=== PATIENT | female | born 1955 | race Asian ===

== ENCOUNTER 2019-07-11 14:00 | Inpatient (IN) | payer MEDICARE, OTHER ==
[~2019-07-11] VITALS: Ht 157.5 cm; Wt 83.6 kg
[2019-07-11 15:59] VITALS: BP 141/66
[2019-07-11] MEDS ORDERED: ACETAMINOPHEN 325 MG TABLET PO PRN ×2 (16:00)
[2019-07-11] MEDS ORDERED: ALBUTEROL SULFATE HFA 90 MCG/PUFF 8 GM INHALER IH PRN (16:15)
[2019-07-11] MEDS ORDERED: FAMOTIDINE 20 MG TABLET PO SCH (16:30)
[2019-07-11] MEDS ORDERED: LEVE500T53 PO (19:47)
[2019-07-11] MEDS ORDERED: AMLO10TA7 PO (19:47)
[2019-07-11] MEDS ORDERED: ATOR40TA28 PO (19:48)
[2019-07-11] MEDS ORDERED: FLUT16H NASAL (19:49)
[2019-07-11] MEDS ORDERED: CARB15DR OU (19:50)
[2019-07-11] MEDS ORDERED: ALBU8.5H8 IH (19:53)
[2019-07-11] MEDS ORDERED: INFLUENZA VIRUS VACCINE QVS 2019-20 (3YR+)/PF 60 MCG/0.5 ML SYRINGE IM ONE (20:45)
[2019-07-11] MEDS ORDERED: PNEUMOCOCCAL VACCINE POLYVALENT 0.5 ML VIAL [PPSV23] IM ONE (20:45)
[2019-07-11] MEDS: SENNA 187 MG TABLET PO SCH (21:00)
[2019-07-11] MEDS ORDERED: DOCUSATE SODIUM 100 MG CAPSULE PO SCH (21:00)
[2019-07-11] MEDS ORDERED: DEXAMETHASONE 2 MG TABLET PO SCH (21:00)
[2019-07-11] MEDS: DOCUSATE SODIUM 250 MG CAPSULE PO SCH (21:00)
[2019-07-11] MEDS: LevETIRAcetam 500 MG TABLET PO SCH (21:33)
[2019-07-11] MEDS: ATORVASTATIN CALCIUM 40 MG TABLET PO SCH (21:33)
[2019-07-11 23:57] VITALS: BP 142/78
[2019-07-12] MEDS: PANTOPRAZOLE SODIUM 40 MG DR TABLET PO SCH (06:10)
[2019-07-12 06:13] LABS: GLUCOMETER DEV NAME(LOC) 2WR.2; GLUCOSE,POINT OF CARE 113 MG/DL (70-110)
[2019-07-12] MEDS: DOCUSATE SODIUM 250 MG CAPSULE PO SCH ×2 (08:52→21:13)
[2019-07-12] MEDS: DEXAMETHASONE 1 MG TABLET PO SCH ×2 (08:53→21:13)
[2019-07-12] MEDS: LevETIRAcetam 500 MG TABLET PO SCH ×2 (08:53→21:13)
[2019-07-12] MEDS: AmLODIPine BESYLATE 10 MG TABLET PO SCH (08:53)
[2019-07-12] MEDS: TAMSULOSIN HCL 0.4 MG CAPSULE PO SCH (08:53)
[2019-07-12 08:54] LABS: BASOPHILS % (AUTO) 0.3 % (0.0-2.0); EOSINOPHILS % (AUTO) 0.1 % (1.0-6.0); HEMATOCRIT 37.3 % (36-46); HEMOGLOBIN 12.3 g/dL (12.0-16.0); LYMPHOCYTES # (AUTO) 0.9 K/uL (1.0-4.8); LYMPHOCYTES % (AUTO) 9.2 % (22.0-44.0); MEAN CORPUSCULAR HEMOGLOBIN 28.6 pg (26.0-34.0); MEAN CORPUSCULAR HGB CONC 32.9 G/dL (31.0-37.0); MEAN CORPUSCULAR VOLUME 87 fL (80-100); MONOCYTES # (AUTO) 0.6 K/uL (0.1-1.0); MONOCYTES % (AUTO) 6.5 % (2.0-9.0); NEUTROPHILS # (AUTO) 8.2 K/uL (1.8-7.7); NEUTROPHILS % (AUTO) 83.9 % (40.0-70.0); PLATELET COUNT (AUTO) 212 K/uL (150-450); RED BLOOD CELL COUNT(AUTO) 4.28 MIL/uL (4.00-5.20); RED CELL DISTRIBUTION WIDTH 13.5 % (11.5-14.5)
[2019-07-12 09:06] VITALS: BP 144/91
[2019-07-12 09:24] LABS: ALANINE AMINOTRANSFERASE 403 U/L (12-78); ALBUMIN 2.9 g/dL (3.4-5.0); ALKALINE PHOSPHATASE 96 U/L (46-116); ANION GAP 6 mmol/L (8-16); ASPARTATE AMINOTRANSFERASE 115 U/L (15-37); BILIRUBIN,TOTAL 0.5 mg/dL (0.1-1.0); CALCIUM, TOTAL 8.7 mg/dL (8.8-10.5); CARBON DIOXIDE 30 mmol/L (22-29); CHLORIDE 105 mmol/L (98-107); CREATININE 0.74 mg/dL (0.60-1.30); GLOMERULAR FILTR. RATE CALC > 60 mL/min (>60); GLUCOSE,RANDOM 130 mg/dL (70-110); POTASSIUM 3.2 mmol/L (3.5-5.1); SODIUM SERUM 141 mmol/L (136-145); TOTAL PROTEIN, SERUM 6.8 g/dL (6.4-8.2); UREA NITROGEN, BLOOD 15 mg/dL (7-18)
[2019-07-12] MEDS ORDERED: DEXTROSE 50%-WATER 25 GM/50 ML SYRINGE IVP PRN (10:15)
[2019-07-12] MEDS ORDERED: INSULIN LISPRO 100 UNITS/ML SQ PRN (10:15)
[2019-07-12] MEDS: POTASSIUM CHLORIDE 20 MEQ ER TABLET PO SCH (12:44)
[2019-07-12 13:12] LABS: GLUCOMETER DEV NAME(LOC) 2WR.2; GLUCOSE,POINT OF CARE 105 MG/DL (70-110)
[2019-07-12] MEDS: HEPARIN SODIUM,PORCINE 5,000 UNITS/ML VIAL SQ SCH ×2 (15:48→23:57)
[2019-07-12 16:06] VITALS: BP 142/78
[2019-07-12 17:49] LABS: GLUCOMETER DEV NAME(LOC) 2WR.2; GLUCOSE,POINT OF CARE 111 MG/DL (70-110)
[2019-07-12] MEDS: SENNA 187 MG TABLET PO SCH (21:13)
[2019-07-12] MEDS: MELATONIN 3 MG TABLET PO PRN (21:13)
[2019-07-12] MEDS: ATORVASTATIN CALCIUM 40 MG TABLET PO SCH (21:13)
[2019-07-12 21:34] LABS: GLUCOMETER DEV NAME(LOC) 2WR.2; GLUCOSE,POINT OF CARE 117 MG/DL (70-110)
[2019-07-13] VITALS: BP 139/72
[2019-07-13] MEDS: PANTOPRAZOLE SODIUM 40 MG DR TABLET PO SCH (05:53)
[2019-07-13 06:09] LABS: GLUCOMETER DEV NAME(LOC) 2WR.2; GLUCOSE,POINT OF CARE 99 MG/DL (70-110)
[2019-07-13 07:30] VITALS: BP 152/85
[2019-07-13] MEDS: LevETIRAcetam 500 MG TABLET PO SCH ×2 (08:45→20:25)
[2019-07-13] MEDS: TAMSULOSIN HCL 0.4 MG CAPSULE PO SCH (08:46)
[2019-07-13] MEDS: POTASSIUM CHLORIDE 20 MEQ ER TABLET PO SCH (08:46)
[2019-07-13] MEDS: HEPARIN SODIUM,PORCINE 5,000 UNITS/ML VIAL SQ SCH ×3 (08:46→22:51)
[2019-07-13] MEDS: DOCUSATE SODIUM 250 MG CAPSULE PO SCH ×2 (08:46→20:25)
[2019-07-13] MEDS: AmLODIPine BESYLATE 10 MG TABLET PO SCH (08:46)
[2019-07-13] MEDS ORDERED: DEXAMETHASONE 1 MG TABLET PO SCH (09:00)
[2019-07-13 12:56] VITALS: BP 137/60
[2019-07-13 15:54] LABS: GLUCOMETER DEV NAME(LOC) 2WR.2; GLUCOSE,POINT OF CARE 100 MG/DL (70-110)
[2019-07-13 17:33] VITALS: BP 145/80
[2019-07-13 18:06] LABS: GLUCOMETER DEV NAME(LOC) 2WR.2; GLUCOSE,POINT OF CARE 107 MG/DL (70-110)
[2019-07-13] MEDS: ATORVASTATIN CALCIUM 40 MG TABLET PO SCH (20:25)
[2019-07-13] MEDS: SENNA 187 MG TABLET PO SCH (20:25)
[2019-07-13] MEDS: MELATONIN 3 MG TABLET PO PRN (20:25)
[2019-07-13 23:40] VITALS: BP 134/71
[2019-07-14] MEDS: PANTOPRAZOLE SODIUM 40 MG DR TABLET PO SCH (05:04)
[2019-07-14 05:55] LABS: GLUCOMETER DEV NAME(LOC) 2WR.2; GLUCOSE,POINT OF CARE 92 MG/DL (70-110)
[2019-07-14 07:30] VITALS: BP 142/70
[2019-07-14] MEDS: TAMSULOSIN HCL 0.4 MG CAPSULE PO SCH (07:40)
[2019-07-14] MEDS: AmLODIPine BESYLATE 10 MG TABLET PO SCH (07:40)
[2019-07-14] MEDS: LevETIRAcetam 500 MG TABLET PO SCH ×2 (07:41→20:23)
[2019-07-14] MEDS: POTASSIUM CHLORIDE 20 MEQ ER TABLET PO SCH (07:41)
[2019-07-14] MEDS: HEPARIN SODIUM,PORCINE 5,000 UNITS/ML VIAL SQ SCH ×3 (07:41→23:11)
[2019-07-14] MEDS: DOCUSATE SODIUM 250 MG CAPSULE PO SCH ×2 (07:48→20:23)
[2019-07-14 10:30] VITALS: BP 129/69
[2019-07-14 15:30] VITALS: BP 115/61
[2019-07-14] MEDS: MELATONIN 3 MG TABLET PO PRN (20:23)
[2019-07-14] MEDS: SENNA 187 MG TABLET PO SCH (20:23)
[2019-07-14] MEDS: ATORVASTATIN CALCIUM 40 MG TABLET PO SCH (20:23)
[2019-07-14 23:44] VITALS: BP 136/75
[2019-07-15] MEDS: PANTOPRAZOLE SODIUM 40 MG DR TABLET PO SCH (06:16)
[2019-07-15 06:54] LABS: ALANINE AMINOTRANSFERASE 244 U/L (12-78); ALBUMIN 2.6 g/dL (3.4-5.0); ALKALINE PHOSPHATASE 93 U/L (46-116); ANION GAP 6 mmol/L (8-16); ASPARTATE AMINOTRANSFERASE 60 U/L (15-37); BILIRUBIN,TOTAL 0.4 mg/dL (0.1-1.0); CALCIUM, TOTAL 8.5 mg/dL (8.8-10.5); CARBON DIOXIDE 29 mmol/L (22-29); CHLORIDE 105 mmol/L (98-107); CREATININE 0.57 mg/dL (0.60-1.30); GLOMERULAR FILTR. RATE CALC > 60 mL/min (>60); GLUCOSE,RANDOM 102 mg/dL (70-110); POTASSIUM 3.4 mmol/L (3.5-5.1); SODIUM SERUM 140 mmol/L (136-145); UREA NITROGEN, BLOOD 9 mg/dL (7-18)
[2019-07-15 07:30] VITALS: BP 136/66
[2019-07-15] MEDS: TAMSULOSIN HCL 0.4 MG CAPSULE PO SCH (07:44)
[2019-07-15] MEDS: AmLODIPine BESYLATE 10 MG TABLET PO SCH (07:44)
[2019-07-15] MEDS: HEPARIN SODIUM,PORCINE 5,000 UNITS/ML VIAL SQ SCH ×3 (07:44→23:32)
[2019-07-15] MEDS: POTASSIUM CHLORIDE 20 MEQ ER TABLET PO SCH (07:44)
[2019-07-15] MEDS: LevETIRAcetam 500 MG TABLET PO SCH ×2 (07:44→19:59)
[2019-07-15] MEDS: DOCUSATE SODIUM 250 MG CAPSULE PO SCH ×2 (07:57→20:05)
[2019-07-15 09:50] VITALS: BP 117/66
[2019-07-15] MEDS ORDERED: POTASSIUM CHLORIDE 20 MEQ ER TABLET PO ONE (10:15)
[2019-07-15 10:25] VITALS: BP 119/51
[2019-07-15 16:22] VITALS: BP 115/55
[2019-07-15] MEDS: ATORVASTATIN CALCIUM 40 MG TABLET PO SCH (19:59)
[2019-07-15] MEDS: SENNA 187 MG TABLET PO SCH (20:05)
[2019-07-15] MEDS: MELATONIN 3 MG TABLET PO PRN (20:41)
[2019-07-16] VITALS: BP 109/65
[2019-07-16] MEDS: PANTOPRAZOLE SODIUM 40 MG DR TABLET PO SCH (06:07)
[2019-07-16 07:23] VITALS: BP 127/65
[2019-07-16] MEDS: POTASSIUM CHLORIDE 10 MEQ ER TABLET PO SCH (07:46)
[2019-07-16] MEDS: LevETIRAcetam 500 MG TABLET PO SCH ×2 (07:46→19:59)
[2019-07-16] MEDS: TAMSULOSIN HCL 0.4 MG CAPSULE PO SCH (07:46)
[2019-07-16] MEDS: DOCUSATE SODIUM 250 MG CAPSULE PO SCH ×2 (07:46→20:06)
[2019-07-16] MEDS: AmLODIPine BESYLATE 10 MG TABLET PO SCH (07:46)
[2019-07-16] MEDS: HEPARIN SODIUM,PORCINE 5,000 UNITS/ML VIAL SQ SCH ×3 (07:47→23:00)
[2019-07-16 15:00] VITALS: BP 124/69
[2019-07-16] MEDS ORDERED: PANT40TA25 PO (15:43)
[2019-07-16] MEDS ORDERED: TAMS-13 PO (15:44)
[2019-07-16] MEDS ORDERED: DOCU-342 PO (15:45)
[2019-07-16] MEDS ORDERED: KDUR10 PO (15:46)
[2019-07-16] MEDS: ATORVASTATIN CALCIUM 40 MG TABLET PO SCH (19:59)
[2019-07-16] MEDS: MELATONIN 3 MG TABLET PO PRN (20:00)
[2019-07-16] MEDS: SENNA 187 MG TABLET PO SCH (20:06)
[2019-07-16 23:05] VITALS: BP 125/66
[2019-07-16 23:32] VITALS: BP 125/66
[2019-07-17] MEDS: PANTOPRAZOLE SODIUM 40 MG DR TABLET PO SCH (06:18)
[2019-07-17 07:10] VITALS: BP 130/71
[2019-07-17] MEDS: TAMSULOSIN HCL 0.4 MG CAPSULE PO SCH (08:30)
[2019-07-17] MEDS: POTASSIUM CHLORIDE 10 MEQ ER TABLET PO SCH (08:30)
[2019-07-17] MEDS: HEPARIN SODIUM,PORCINE 5,000 UNITS/ML VIAL SQ SCH ×3 (08:31→22:59)
[2019-07-17] MEDS: AmLODIPine BESYLATE 10 MG TABLET PO SCH (08:31)
[2019-07-17] MEDS: LevETIRAcetam 500 MG TABLET PO SCH ×2 (08:31→20:17)
[2019-07-17] MEDS: DOCUSATE SODIUM 250 MG CAPSULE PO SCH ×2 (08:37→20:17)
[2019-07-17 15:00] VITALS: BP 120/71
[2019-07-17] MEDS: ATORVASTATIN CALCIUM 40 MG TABLET PO SCH (20:17)
[2019-07-17] MEDS: SENNA 187 MG TABLET PO SCH (20:17)
[2019-07-17] MEDS: MELATONIN 3 MG TABLET PO PRN (20:21)
[2019-07-17 23:27] VITALS: BP 109/64
[2019-07-18] MEDS: PANTOPRAZOLE SODIUM 40 MG DR TABLET PO SCH (05:40)
[2019-07-18 07:32] VITALS: BP 117/68
[2019-07-18] MEDS: LevETIRAcetam 500 MG TABLET PO SCH ×2 (07:53→20:05)
[2019-07-18] MEDS: AmLODIPine BESYLATE 10 MG TABLET PO SCH (07:53)
[2019-07-18] MEDS: POTASSIUM CHLORIDE 10 MEQ ER TABLET PO SCH (07:53)
[2019-07-18] MEDS: DOCUSATE SODIUM 250 MG CAPSULE PO SCH ×2 (07:53→20:04)
[2019-07-18] MEDS: TAMSULOSIN HCL 0.4 MG CAPSULE PO SCH (07:53)
[2019-07-18] MEDS: HEPARIN SODIUM,PORCINE 5,000 UNITS/ML VIAL SQ SCH ×3 (07:54→23:03)
[2019-07-18 08:30] LABS: ALANINE AMINOTRANSFERASE 179 U/L (12-78); ALBUMIN 2.9 g/dL (3.4-5.0); ALKALINE PHOSPHATASE 119 U/L (46-116); ANION GAP 9 mmol/L (8-16); ASPARTATE AMINOTRANSFERASE 49 U/L (15-37); BILIRUBIN,TOTAL 0.3 mg/dL (0.1-1.0); CALCIUM, TOTAL 8.8 mg/dL (8.8-10.5); CARBON DIOXIDE 26 mmol/L (22-29); CHLORIDE 104 mmol/L (98-107); CREATININE 0.65 mg/dL (0.60-1.30); GLOMERULAR FILTR. RATE CALC > 60 mL/min (>60); GLUCOSE,RANDOM 112 mg/dL (70-110); SODIUM SERUM 139 mmol/L (136-145); UREA NITROGEN, BLOOD 13 mg/dL (7-18)
[2019-07-18 15:00] VITALS: BP 123/69
[2019-07-18] MEDS: SENNA 187 MG TABLET PO SCH (20:04)
[2019-07-18] MEDS: MELATONIN 3 MG TABLET PO PRN (20:05)
[2019-07-18] MEDS: ATORVASTATIN CALCIUM 40 MG TABLET PO SCH (20:05)
[2019-07-18 23:48] VITALS: BP 146/59
[2019-07-19] MEDS: PANTOPRAZOLE SODIUM 40 MG DR TABLET PO SCH (05:37)
[2019-07-19] MEDS: HEPARIN SODIUM,PORCINE 5,000 UNITS/ML VIAL SQ SCH (07:44)
[2019-07-19] MEDS: AmLODIPine BESYLATE 10 MG TABLET PO SCH (07:44)
[2019-07-19] MEDS: DOCUSATE SODIUM 250 MG CAPSULE PO SCH (07:44)
[2019-07-19] MEDS: LevETIRAcetam 500 MG TABLET PO SCH (07:44)
[2019-07-19] MEDS: POTASSIUM CHLORIDE 10 MEQ ER TABLET PO SCH (07:45)
[2019-07-19 07:56] VITALS: BP 118/66
== END 2019-07-19 11:05 | disposition home or self-care (01) | DRG 55 ==
LOC: 2WR 14:00
PROVIDERS: ADMIT Physical Medicine & Rehabilitation; ATTEND Physical Medicine & Rehabilitation
DX: C71.9 Malignant neoplasm of brain, unspecified (principal); G81.91 Hemiplegia, unspecified affecting right dominant side; E78.5 Hyperlipidemia, unspecified; E87.6 Hypokalemia; I10 Essential (primary) hypertension; J45.909 Unspecified asthma, uncomplicated; K76.0 Fatty (change of) liver, not elsewhere classified; Z82.49 Family history of ischemic heart disease and other diseases of the circulatory system; Z90.710 Acquired absence of both cervix and uterus; Z90.49 Acquired absence of other specified parts of digestive tract; R13.12 Dysphagia, oropharyngeal phase; E66.9 Obesity, unspecified; K21.9 Gastro-esophageal reflux disease without esophagitis; M19.90 Unspecified osteoarthritis, unspecified site; Z68.37 Body mass index [BMI] 37.0-37.9, adult; Z28.21 Immunization not carried out because of patient refusal
CPT/HCPCS: 87081; 92507; 92526; 92610; 93970; 97110; 97112; 97116; 97163; 97167; 97530; 97535; J1644; J8540